=== PATIENT | female | born 1960 | race Caucasian/White ===

== ENCOUNTER 2016-04-07 16:06 | Emergency (ER) | payer BC, OTHER ==
[~2016-04-07] VITALS: Ht 160 cm; Wt 86.7 kg
[~2016-04-07 16:06] MED LIST: RANI300T2 PO
[2016-04-07 16:12] VITALS: BP 125/73; PULSE 89; TEMP 36.7; O2SAT 97; Ht 160 cm; Wt 86.7 kg
[2016-04-07] MEDS ORDERED: OMEP40CA41 PO (16:42)
--- NOTE | 2016-04-07 17:15 | DIAGNOSTIC IMAGING REPORT ---
LEFT KNEE 3 VIEWS CLINICAL HISTORY: Left knee injury. FINDINGS: AP, crosstable lateral, and sunrise views of the left knee are obtained. No prior studies are available for comparison at the time of dictation. The skeletal structures are well mineralized. There is a questionable vertical lucency seen within the lateral aspect of the proximal tibia. Fractures considered unlikely but not excluded. No additional findings are concerning for fracture. Mild tricompartmental degenerative joint space narrowing is noted. There is no joint effusion. Mild soft tissue swelling is present around the knee. IMPRESSION: 1. Mild soft tissue swelling with no definite fracture identified. 2. A vertical lucency in the lateral aspect of the proximal tibia is indeterminant and likely represents normal trabeculation. This is only seen on the frontal view and is considered low suspicion for acute fracture. If there is point tenderness at this site or strong clinical concern for acute fracture consider oblique views. Electronically signed by: Corby Scott M.D. 04/07/2016 5:13 PM Dictated Date/Time: 04/07/2016 5:10 PM
--- NOTE | 2016-04-07 17:37 | EMERGENCY ROOM VISIT NOTE ---
ED Visit Note First contact with patient: 16:21 CHIEF COMPLAINT: knee pain HISTORY OF PRESENT ILLNESS: This 55-year-old female patient presents to the emergency department ambulatory after sustaining an injury to the left knee last night. The patient states that she tripped and fell, twisting her left knee. She states that she heard a pop in the knee when it occurred. The patient denies any other injuries besides their knee. The patient denies swelling. She states there is some bruising to the inside of the knee. There is pain with any movement or walking. They rate the pain as sharp and 10/10. The patient states they are able to walk on it. No numbness or tingling. No previous injuries to this knee. No ankle, foot or hip pain. REVIEW OF SYSTEMS: A 6 system review of systems was completed with positives and pertinent negatives listed in the HPI. ALLERGIES: No known drug allergies MEDICATIONS: Prilosec PMH: Asthma SOCIAL HISTORY: The patient lives locally with family. Nonsmoker, denies alcohol use. PHYSICAL EXAM: Vital Signs: Reviewed Nurse's notes, vital signs stable. GENERAL : This is a 55-year-old female, no acute distress, but appears in pain, well- developed, well-nourished. MENTAL STATUS: Alert, oriented to person place and time, and cooperative. MUSCULOSKELETAL: The left knee is not swollen. There is minimal ecchymosis along the medial aspect of the joint. There is no joint effusion present. The patient is tender along the medial aspect of the proximal tibia. The patella does not subluxate. Range of motion is full. Strength of the quads and hamstrings is 5/5. Ligamentous stability is difficult to examine secondary to patient discomfort. The foot and toes are warm and well-perfused. Dorsalis pedis pulse 2+. Sensation to pain and light touch is intact. Capillary refill less than 2 seconds. RADIOGRAPHIC FINDINGS: LEFT KNEE 3 VIEWS CLINICAL HISTORY: Left knee injury. FINDINGS: AP, crosstable lateral, and sunrise views of the left knee are obtained. No prior studies are available for comparison at the time of dictation. The skeletal structures are well mineralized. There is a questionable vertical lucency seen within the lateral aspect of the proximal tibia. Fractures considered unlikely but not excluded. No additional findings are concerning for fracture. Mild tricompartmental degenerative joint space narrowing is noted. There is no joint effusion. Mild soft tissue swelling is present around the knee. IMPRESSION: 1. Mild soft tissue swelling with no definite fracture identified. 2. A vertical lucency in the lateral aspect of the proximal tibia is indeterminant and likely represents normal trabeculation. This is only seen on the frontal view and is considered low suspicion for acute fracture. If there is point tenderness at this site or strong clinical concern for acute fracture consider oblique views. EMERGENCY DEPARTMENT COURSE: I examined the patient. X-rays of the left knee were reviewed by myself and read by radiology and reveal a questionable finding at the lateral aspect of the proximal tibia. This does not correlate with the patient's pain and I do not feel that it represents a fracture. Her pain is likely secondary to ligamentous or meniscal injury. The patient was placed in a knee immobilizer under my direction and the position was satisfactory. The patient was instructed on the use of crutches. She was given information for orthopedic follow-up. Conservative measures were discussed. The patient was discharged home in good condition. DIAGNOSIS: Left knee injury Current/Historical Medications Scheduled Omeprazole (Prilosec), 40 MG PO DAILY Allergies Coded Allergies: No Known Allergies (Verified , 01/17/11) Vital Signs Date Time Temp Pulse Resp B/P Pulse Ox O2 Delivery O2 Flow Rate FiO2 04/07/16 16:12 36.7 89 18 125/73 97 Room Air Departure Information Impression Primary Impression: Left knee injury Dispostion Home / Self-Care Condition GOOD Referrals No Doctor, Assigned (PCP) Clifton Galloway M.D. Patient Instructions [facility] Additional Instructions You have been treated in the Emergency Department for Knee Pain. For pain control, you can use the following pery-kib-lsfrqul medicines (if >12 yo): - Regular strength (325mg/tab) Tylenol (acetaminophen) 2 tabs every 4-6 hours as needed. Do not exceed 12 tablets in a 24 hour period. Avoid taking more than 4 grams (4000 mg) of Tylenol per day. This includes any other sources of acetaminophen you may take on a regular basis. - Regular strength (200 mg/tab) Advil (ibuprofen) 1-2 tabs every 4-6 hours as needed. Do not exceed a dose of 3200 mg per day. If this is a recent injury (<24 hrs), ice can be applied to the area of pain for the first 3 days to help decrease pain and inflammation. Ice massages can be performed by freezing water in a paper cup, peeling back the cup to expose the ice and then massaging over the affected area. You have been provided the number for an Orthopaedic Surgeon. You should call this number as soon as possible to establish a follow-up visit from today's Emergency Department visit. Keep the knee brace in place until cleared by Orthopedics. Use the crutches you have been provided to keep ALL weight off of the knee until weight bearing is tolerable. Return to the Emergency Department if your current symptoms worsen despite treatment course outlined above. Problem Qualifiers Primary Impression: Left knee injury Encounter type: initial encounter Qualified Codes: S89.92XA - Unspecified injury of left lower leg, initial encounter
== END 2016-04-07 17:55 | disposition home or self-care (01) ==
LOC: C.EDB 16:07 → C.EDD 17:55
DX: S89.92XA Unspecified injury of left lower leg, initial encounter (principal); W01.0XXA Fall on same level from slipping, tripping and stumbling without subsequent striking against object, initial encounter

== ENCOUNTER 2020-11-20 17:30 | Inpatient (IN) ==
[2020-11-20] MEDS ORDERED: KETOROLAC TROMETHAMINE 15 MG/ML VIAL IV STA (19:05)
[2020-11-20 19:10] LABS: Hematocrit (blood only) 39.5 % (37-47); Hemoglobin 13.8 g/dL (12.0-16.0); Mean Corpuscular Hemoglobin 31.2 pg (25-34); Mean Corpuscular Hgb Conc 34.9 g/dL (32-36); Mean Corpuscular Volume 89.2 fL (80-100); Mean Platelet Volume 10.7 fL (7.4-10.4); Platelet Count 324 K/uL (130-400); RDW Coefficient of Variation 12.7 % (11.5-14.5); RDW Standard Deviation 41.4 fL (36.4-46.3); Red Blood Count 4.43 M/uL (4.2-5.4); White Blood Count 29.09 K/uL (4.8-10.8)
[2020-11-20 19:19] LABS: BUN Creatinine Ratio 7.1 (10-20); Calcium 9.4 mg/dl (8.5-10.1); Creatinine Clr Calc Pharmacy 67.2 ml/min; Est GFR (African American) 79.6 ml/min; Est GFR (Non-African American) 68.6 ml/min; Potassium 3.6 mmol/L (3.5-5.1)
[2020-11-20 19:26] LABS: Basophils # (auto) 0.02 K/uL (0-0.2); Basophils % (auto) 0.1 %; Immature Granulocytes # (auto) 0.13 K/uL (0.00-0.02); Immature Granulocytes % (auto) 0.4 %; Lymphocytes # (auto) 2.01 K/uL (1.2-3.4); Lymphocytes % (auto) 6.9 %; Monocytes # (auto) 2.18 K/uL (0.11-0.59); Monocytes % (auto) 7.5 %; Neutrophils # (auto) 24.75 K/uL (1.4-6.5); Neutrophils % (auto) 85.1 %
[2020-11-20] MEDS ORDERED: OPTIRAY 320 100ml IV ONE (19:34)
--- NOTE | 2020-11-20 20:14 | CT Scan Report ---
CT SCAN OF THE NECK WITH IV CONTRAST CLINICAL HISTORY: Right-sided neck pain. Sore throat. COMPARISON STUDY: Thyroid ultrasound dated 04/26/2011. TECHNIQUE: Following the IV administration of 94 cc of Optiray 320, CT scan of the soft tissues of th e neck was performed from the skull base to the upper chest. Images are reviewed in the axial, sagitt al, and coronal planes. IV contrast was administered without complication. A dose lowering techniqu e was utilized adhering to the principles of ALARA. CT DOSE: 549.63 mGy.cm FINDINGS: Pharynx: There is significant edema and mucosal hyperemia involving the tonsils, right greater than l eft. A large multiloculated right peritonsillar abscess is best seen on axial image #144. This measur es 2.2 x 2.6 x 1.1 cm, and inflammation significantly air narrows the adjacent airway. There is signi ficant infiltration throughout the right parapharyngeal fat, as well as infiltration/edema of the pre vertebral/retropharyngeal soft tissues with no organized retropharyngeal fluid collection. Infiltrati on and edema effaces the right vallecula comment also extends inferiorly facing the right piriformis sinus with associated phlegmonous change. There is also phlegmonous change within the right piriformi s musculature. There is no evidence of mass lesion. The vocal cords are symmetric. The epiglottis is normal. Lymphadenopathy: There are numerous mildly enlarged and hyperemic right cervical chain lymph nodes wh ich are likely reactive Thyroid: Normal in size and attenuation. Salivary glands: The parotid and submandibular glands are within normal limits. Brain parenchyma: The visualized brain parenchyma at the skull base is normal in appearance. Vascular structures: The carotid arteries and jugular veins are widely patent bilaterally. Skeletal structures: Imaged portions of the calvarium at the skull base are within normal limits. The cervical spine appears intact noting mild multilevel spondylosis. No lytic or blastic lesion is iden tified. Orbits: The bony orbits appear intact. Orbital contents are normal as visualized. Sinuses and mastoids: There is trace mucosal thickening within the ethmoid sinuses and the right maxi llary antrum. The remaining paranasal sinuses are clear. The mastoid air cells are well pneumatized. Lung apices: Visualized apical lung parenchyma is clear. IMPRESSION: 1. Findings consistent with a severe pharyngitis/tonsillitis with a large right peritonsillar abscess as detailed above. This significantly narrows the adjacent airway. 2. Inflammation and phlegmonous change extends inferiorly on the right effacing the right vallecula i n the right piriformis sinus. 3. There is diffuse infiltration of the right parapharyngeal fat as well as edema/infiltration of the retropharyngeal soft tissues. No retropharyngeal fluid collection is identified at this time. 4. Infiltration/phlegmonous change is also seen within the right piriformis musculature. 5. Right cervical lymphadenopathy is likely reactive. 6. Additional findings as above. ACT 112: Negative or not required by law. Electronically signed by: Corby Scott M.D. 11/20/2020 8:13 PM
[2020-11-20] MEDS ORDERED: AMPICILLIN/SULBACTAM SOD 3,000 MG in 0.9 % SODIUM CHLORIDE 100 ML IV STA (20:22)
[2020-11-20] MEDS ORDERED: DEXAMETHASONE SOD INJ 4 MG/ML VIAL IV STA (20:22)
[2020-11-20] MEDS ORDERED: LIDO/EPINEPHRINE/SOD BICARB 20 ML VIAL ONE (20:47)
--- NOTE | 2020-11-20 20:54 | History & Physical Report ---
Date of Service November 20, 2020 Assessment & Plan (1) Peritonsillar abscess: Plan: Admit to medical telemetry Given dexamethasone 10 mg IV and Unasyn 3 g IV from the ED Continue dexamethasone 4 mg IV every 8 hours, and Unasyn 3 g IV every 6 hours Follow all cultures Patient did undergo drainage by ENT Dr. Sherwood while in the ED. Acetaminophen 1 g IV every 8 hours as needed mild pain or fever (2) Chronic reflux esophagitis: Plan: Hold omeprazole until able to take p.o. Famotidine 20 mg IV every 12 hours (3) Hypercholesterolemia: Plan: Hold the tube statin until taking p.o. (4) Asthma: Plan: DuoNebs every 2 hours as needed History of Present Illness Chief Complaint: The patient Zentz to the emergency department with worsening sore throat and difficulty swallowing, despite being placed on amoxicillin 3 days ago Primary Care Provider: [address], [place] The patient is a 59-year-old for male with past history including PND, hyperglycemia, positive PERRY vitamin D deficiency, hypercholesterolemia, asthma and chronic reflux esophagitis. She presents with symptoms as noted above. CT scan of soft tissue of neck: Severe pharyngitis/tonsillitis with a large right peritonsillar abscess that significantly narrows the adjacent airway. Inflammation and phlegmon is changes extending inferiorly on the right effacing the right vallecula and the right piriform sinus. There is diffuse infiltration of the right. Frequent parapharyngeal fat as well as the edema/infiltration of the retropharyngeal soft tissues. Infiltration/phlegmonous change is also seen within the right piriformis musculature. Patient was assessed by Dr. PIERRE Sherwood in the ED, with plans for drainage. The patient will then be admitted to the medical service Allergies Allergy/AdvReac Type Severity Reaction Status Date / Time No Known Allergies Allergy Unknown Verified 11/14/20 08:38 Home Medications Medication Instructions Recorded Confirmed Type aspirin 81 mg tablet,delayed 81 mg PO DAILY 01/21/19 11/20/20 History release gabapentin 100 mg capsule 100 mg PO DAILY #90 cap 08/11/19 11/20/20 Rx atorvastatin 20 mg tablet 20 mg PO DAILY #90 tab 02/08/20 11/20/20 Rx cholecalciferol (vitamin D3) 125 125 mcg PO DAILY #30 cap 02/08/20 11/20/20 Rx mcg (5,000 unit) capsule omeprazole 40 mg capsule,delayed 40 mg PO DAILY #30 cap 06/07/20 11/20/20 Rx release albuterol sulfate 90 mcg/actuation 1 - 2 puff INH Q4H PRN #8.5 gm 07/19/20 11/20/20 Rx aerosol inhaler amoxicillin 500 mg tablet 500 mg PO Q8H #21 tab 11/14/20 11/20/20 Rx vitamin B complex 1 tab PO DAILY 11/20/20 11/20/20 History Past Med/Surg History Medical History (Updated 11/20/20 @ 21:38 by Azul Eli) Left knee injury Murmur Positive PERRY (antinuclear antibody) Surgical History S/P appendectomy S/P dilatation and curettage S/P tubal ligation Family History Father Myocardial infarction Hypertension Mother Diabetes Thyroid cancer Denies family history of Ovarian cancer Prostate cancer Breast cancer Colorectal cancer Social History Smoking Status: Current every day smoker Age Started Using Tobacco: 16; Second Hand Exposure: Yes; Hx Alcohol Use: Yes Alcohol type: wine Hx Substance Use: No Preferred Language: [place] Communication Ability: Effective Visual Impairment: No Limitations Hearing Ability: Normal Rib Matcher And Fitter Required: No Beliefs That Will Affect Care: None marital status: Current Living Situation: Spouse Current Living Situation Comment: lives with , pets and a child at home, grown adult child of pt. current occupational status: employed current occupation: Housekeeping Feels Safe at Home: Yes Childhood Exposure to Second-Hand Smoke: Yes Dental Care, Regularly: No Physical Activity Frequency: Does not Exercise Seatbelt Use: always Sunscreen Use: No Assistive Devices: Glasses Review of Systems Review of Systems: The patient denies chest pain, palpitations, cough, lower extremity swelling, chills, sweats, nausea, vomiting, diarrhea , constipation, abdominal pain, pelvic pain, blood in urine or stool, dysuria, urinary frequency or urgency, lightheadedness, dizziness, headache, memory loss, loss of consciousness, rash, abnormal bruising or bleeding, imbalance, focal weakness, numbness or tingling in arms or legs, back or neck pain, or night sweats. The review of systems is otherwise negative other than for that already noted above, and at least 10 systems have been reviewed. Physical Exam Physical Exam: The patient is awake, alert and oriented 3, well developed and well nourished, normocephalic and atraumatic, lying in bed and in no acute dist ress. HEENT--PERRL, EOMI, diffuse erythema and edema right greater than left oropharynx Neck--No JVD. No bruits. Right cervical lymphadenopathy. Heart--normal S1 and S2. No murmurs, rubs or gallops. Lungs--clear bilaterally, no respiratory distress, no accessory muscle use. Abdomen--normal bowel sounds and soft. Nontender. Nondistended. Extremities--no cyanosis or clubbing. No edema. Dermatologic--normal skin turgor, normal color, no abnormal lymph nodes, no rash. Neurologic--cranial nerves II through XII grossly intact. Rheumatologic--normal range of motion. Psychiatric--normal affect. Results & Data Results & Data ([facility]) Vital Signs (Past 12 Hours) Vital Signs Temp Pulse Pulse Resp BP BP Pulse Ox 11/20/20 20:40 70 18 126/70 98 11/20/20 19:10 78 20 131/69 97 11/20/20 18:19 18 11/20/20 18:01 97.9 F 73 20 136/80 98 Laboratory Results Laboratory Results WBC 29.09 K/uL (4.8-10.8) H 11/20/20 18:18 RBC 4.43 M/uL (4.2-5.4) 11/20/20 18:18 Hgb 13.8 g/dL (12.0-16.0) 11/20/20 18:18 Hct 39.5 % (37-47) 11/20/20 18:18 MCV 89.2 fL (80-100) 11/20/20 18:18 MCH 31.2 pg (25-34) 11/20/20 18:18 MCHC 34.9 g/dL (32-36) 11/20/20 18:18 RDW Std Deviation 41.4 fL (36.4-46.3) 11/20/20 18:18 RDW Coeff of Tana 12.7 % (11.5-14.5) 11/20/20 18:18 Plt Count 324 K/uL (130-400) 11/20/20 18:18 MPV 10.7 fL (7.4-10.4) H 11/20/20 18:18 Immature Gran % (Auto) 0.4 % 11/20/20 18:18 Neut % (Auto) 85.1 % 11/20/20 18:18 Lymph % (Auto) 6.9 % 11/20/20 18:18 Ashley % (Auto) 7.5 % 11/20/20 18:18 Eos % (Auto) 0.0 % 11/20/20 18:18 Baso % (Auto) 0.1 % 11/20/20 18:18 Neut # (Auto) 24.75 K/uL (1.4-6.5) H 11/20/20 18:18 Lymph # (Auto) 2.01 K/uL (1.2-3.4) 11/20/20 18:18 Ashley # (Auto) 2.18 K/uL (0.11-0.59) H 11/20/20 18:18 Eos # (Auto) 0.00 K/uL (0-0.5) 11/20/20 18:18 Baso # (Auto) 0.02 K/uL (0-0.2) 11/20/20 18:18 Immature Gran # (Auto) 0.13 K/uL (0.00-0.02) H 11/20/20 18:18 Sodium 132 mmol/L (136-145) L 11/20/20 18:18 Potassium 3.6 mmol/L (3.5-5.1) 11/20/20 18:18 Chloride 99 mmol/L (98-107) 11/20/20 18:18 Carbon Dioxide 25 mmol/L (21-32) 11/20/20 18:18 Anion Gap 8.0 (3-11) 11/20/20 18:18 BUN 7 mg/dl (7-18) 11/20/20 18:18 Creatinine 0.92 mg/dl (0.6-1.2) 11/20/20 18:18 Est Cr Clr Drug Dosing 67.2 ml/min 11/20/20 18:18 Est GFR ( Amer) 79.6 ml/min 11/20/20 18:18 Est GFR (Non-Af Amer) 68.6 ml/min 11/20/20 18:18 BUN/Creatinine Ratio 7.1 (10-20) L 11/20/20 18:18 Glucose 123 mg/dl (70-99) H 11/20/20 18:18 Calcium 9.4 mg/dl (8.5-10.1) 11/20/20 18:18 COVID-19 Eval Order Covid19 at [facility] 11/20/20 18:51 SARS-CoV-2 (PCR) NEGATIVE (Negative) 11/20/20 18:51 Group A Strep (PCR) NOT DETECTED (NotDetected) 11/20/20 18:48 Impressions Soft Tissue Neck CT 11/20/20 18:48 CT SCAN OF THE NECK WITH IV CONTRAST CLINICAL HISTORY: Right-sided neck pain. Sore throat. COMPARISON STUDY: Thyroid ultrasound dated 04/26/2011. TECHNIQUE: Following the IV administration of 94 cc of Optiray 320, CT scan of the soft tissues of the neck was performed from the skull base to the upper chest. Images are reviewed in the axial, sagittal, and coronal planes. IV contrast was administered without complication. A dose lowering technique was utilized adhering to the principles of ALARA. CT DOSE: 549.63 mGy.cm FINDINGS: Pharynx: There is significant edema and mucosal hyperemia involving the tonsils, right greater than left. A large multiloculated right peritonsillar abscess is best seen on axial image #144. This measures 2.2 x 2.6 x 1.1 cm, and inflammation significantly air narrows the adjacent airway. There is significant infiltration throughout the right parapharyngeal fat, as well as inf iltration/edema of the prevertebral/retropharyngeal soft tissues with no organized retropharyngeal fluid collection. Infiltration and edema effaces the right vallecula comment also extends inferiorly facing the right piriformis sinus with associated phlegmonous change. There is also phlegmonous change within the right piriformis musculature. There is no evidence of mass lesion. The vocal cords are symmetric. The epiglottis is normal. Lymphadenopathy: There are numerous mildly enlarged and hyperemic right cervical chain lymph nodes which are likely reactive Thyroid: Normal in size and attenuation. Salivary glands: The parotid and submandibular glands are within normal limits. Brain parenchyma: The visualized brain parenchyma at the skull base is normal in appearance. Vascular structures: The carotid arteries and jugular veins are widely patent bilaterally. Skeletal structures: Imaged portions of the calvarium at the skull base are within normal limits. The cervical spine appears intact noting mild multilevel spondylosis. No lytic or blastic lesion is identified. Orbits: The bony orbits appear intact. Orbital contents are normal as visualized. Sinuses and mastoids: There is trace mucosal thickening within the ethmoid sinuses and the right maxillary antrum. The remaining paranasal sinuses are clear. The mastoid air cells are well pneumatized. Lung apices: Visualized apical lung parenchyma is clear. IMPRESSION: 1. Findings consistent with a severe pharyngitis/tonsillitis with a large right peritonsillar abscess as detailed above. This significantly narrows the adjacent airway. 2. Inflammation and phlegmonous change extends inferiorly on the right effacing the right vallecula in the right piriformis sinus. 3. There is diffuse infiltration of the right parapharyngeal fat as well as edema/infiltration of the retropharyngeal soft tissues. No retropharyngeal fluid collection is identified at this time. 4. Infiltration/phlegmonous change is also seen within the right piriformis musculature. 5. Right cervical lymphadenopathy is likely reactive. 6. Additional findings as above. ACT 112: Negative or not required by law. Electronically signed by: Corby Scott M.D. 11/20/2020 8:13 PM Code Status & VTE Plan Code Status Full code VTE Prophylaxis Plan VTE Prophylaxis will be ordered: Yes PG Care Time/CCT Total # of Minutes Spent Total Time Spent with Patient: Total time spent is greater than 50% in coordination of care (as documented) at patient's floor/unit and/or counseling patient: Coding Level of Care Code 02663 Initial Inpt Care Lvl 3 Diagnoses Peritonsillar abscess J36 Chronic reflux esophagitis K21.0 Hypercholesterolemia E78.00 Asthma J45.909
--- NOTE | 2020-11-20 21:22 | ENT Consultation ---
Date of Consultation November 20, 2020 Assessment & Plan (1) Peritonsillar abscess: Evidence of peritonsillar abscess, right, on CT and on exam. For incision and drainage. History of Present Illness Reason for Consultation: Right peritonsillar abscess History of Present Illness This 59-year-old lady had acute onset sore throat 3 days ago became progressively worse, developed dysphagia, presented with trismus, CT scan documented 2 cm phlegmon right peritonsillar area. Allergies Allergy/AdvReac Type Severity Reaction Status Date / Time No Known Allergies Allergy Unknown Verified 11/14/20 08:38 Home Medications Medication Instructions Recorded Confirmed Type aspirin 81 mg tablet,delayed 81 mg PO DAILY 01/21/19 11/20/20 History release gabapentin 100 mg capsule 100 mg PO DAILY #90 cap 08/11/19 11/20/20 Rx atorvastatin 20 mg tablet 20 mg PO DAILY #90 tab 02/08/20 11/20/20 Rx cholecalciferol (vitamin D3) 125 125 mcg PO DAILY #30 cap 02/08/20 11/20/20 Rx mcg (5,000 unit) capsule omeprazole 40 mg capsule,delayed 40 mg PO DAILY #30 cap 06/07/20 11/20/20 Rx release albuterol sulfate 90 mcg/actuation 1 - 2 puff INH Q4H PRN #8.5 gm 07/19/20 11/20/20 Rx aerosol inhaler amoxicillin 500 mg tablet 500 mg PO Q8H #21 tab 11/14/20 11/20/20 Rx vitamin B complex 1 tab PO DAILY 11/20/20 11/20/20 History Patient History Medical History (Updated 11/20/20 @ 21:22 by Callie Sherwood MD) Left knee injury Murmur Positive PERRY (antinuclear antibody) Surgical History S/P appendectomy S/P dilatation and curettage S/P tubal ligation Family History Father Myocardial infarction Hypertension Mother Diabetes Thyroid cancer Denies family history of Ovarian cancer Prostate cancer Breast cancer Colorectal cancer Social History Smoking Status: Never smoker Age Started Using Tobacco: 16; Second Hand Exposure: Yes; Hx Alcohol Use: Yes Hx Substance Use: No Preferred Language: Upper Sorbian Communication Ability: Effective Visual Impairment: No Limitations Hearing Ability: Normal marital status: Current Living Situation: Spouse current occupational status: employed current occupation: Housekeeping Feels Safe at Home: Yes Childhood Exposure to Second-Hand Smoke: Yes Dental Care, Regularly: No Physical Activity Frequency: Does not Exercise Seatbelt Use: always Sunscreen Use: No Physical Exam Constitutional: WD/WN, vitals as above Eyes: PERRL, conjunctivae normal, anicteric sclerae ENMT: external ear and nose normal, oropharynx normal Mouth: + oropharynx abnormality (Right soft palate swelling with uvular edema and uvular shift to the left) and + muffled voice Throat: + tonsil abnormality (Right tonsil with purulence draining superior pole), + lateral displacement of uvula (Deviated left) and + uvular edema Neck: trachea midline, no thyromegaly Respiratory: normal respiratory effort, lungs clear to auscultation Results & Data ([facility]) Vital Signs (Past 12 Hours) Vital Signs Temp Pulse Pulse Resp BP BP Pulse Ox 11/20/20 20:40 70 18 126/70 98 11/20/20 19:10 78 20 131/69 97 11/20/20 18:19 18 11/20/20 18:01 36.6 C 73 20 136/[address] scan reviewed. 2 cm phlegmon right peritonsillar area
--- NOTE | 2020-11-20 21:24 | Operative Report ---
PG Post Operative Report Pre & Post Diagnosis Right peritonsillar abscess I identified the patient and participated in the time-out.: Yes Procedure Incision and drainage right peritonsillar abscess Surgeon Callie Sherwood MD Cable Splicer Assistant None Estimated Blood Loss 5 Findings Consistent with Post-Op Diagnosis Right UV letter swelling, shift left Specimens PATIENT ESCORT right. Tonsil abscess Anesthesia Type Local Complications None Description of Procedure She was in the emergency room, she was in the semisitting position. The throat was sprayed with Cetacaine. I then injected with 1% Xylocaine with 1-100,000 strength epinephrine in the right peritonsillar area. I aspirated with 18-gauge spinal needle, 1 cc pus obtained. I incised with #11 blade and spread open with tonsillar hemostat. I suctioned out the abscess cavity with the Yankauer suction. She tolerated the procedure well. I attest to the content of the Intraoperative Record and any orders documented therein. Any exceptions are noted below.
--- NOTE | 2020-11-20 21:32 | Emergency Department Note ---
History of Present Illness General Chief complaint: Throat Pain Stated complaint: SWOLLEN THROAT, SWOLLEN GLANDS Time Seen by Provider: 11/20/20 18:30 History of Present Illness Provider complaint: Throat and neck pain Onset (ago): day(s) 3 Location: mouth Radiation: non-radiation Pain Consistency: + constant Maximum Pain Intensity: 10 Current Pain Intensity: 10 Quality: + stabbing, + aching, + sharp and + dull Relieved By: + none Exacerbated By: + none Associated symptoms: no cough, no fever/chills, no headaches, no nausea/vomiting or no shortness of breath 59-year-old female presents emergency for right throat and neck pain. Patient reports her pain began 3 days ago. She reports no trauma. She reports no fevers. Patient is not vaccinated as COVID-19. She reports no nausea or vomiting. Home Medications Medication Instructions Recorded Confirmed Type aspirin 81 mg tablet,delayed 81 mg PO DAILY 01/21/19 11/20/20 History release gabapentin 100 mg capsule 100 mg PO DAILY #90 cap 08/11/19 11/20/20 Rx atorvastatin 20 mg tablet 20 mg PO DAILY #90 tab 02/08/20 11/20/20 Rx cholecalciferol (vitamin D3) 125 125 mcg PO DAILY #30 cap 02/08/20 11/20/20 Rx mcg (5,000 unit) capsule omeprazole 40 mg capsule,delayed 40 mg PO DAILY #30 cap 06/07/20 11/20/20 Rx release albuterol sulfate 90 mcg/actuation 1 - 2 puff INH Q4H PRN #8.5 gm 07/19/20 11/20/20 Rx aerosol inhaler amoxicillin 500 mg tablet 500 mg PO Q8H #21 tab 11/14/20 11/20/20 Rx vitamin B complex 1 tab PO DAILY 11/20/20 11/20/20 History Allergies Allergy/AdvReac Type Severity Reaction Status Date / Time No Known Allergies Allergy Unknown Verified 11/14/20 08:38 Past Med/Surg History Medical History Left knee injury Murmur Positive PERRY (antinuclear antibody) Surgical History S/P appendectomy S/P dilatation and curettage S/P tubal ligation Family History Father Myocardial infarction Hypertension Mother Diabetes Thyroid cancer Denies family history of Ovarian cancer Prostate cancer Breast cancer Colorectal cancer Social History Smoking Status: Never smoker Age Started Using Tobacco: 16; Second Hand Exposure: Yes; Hx Alcohol Use: Yes Hx Substance Use: No Preferred Language: Sami Communication Ability: Effective Visual Impairment: No Limitations Hearing Ability: Normal marital status: Current Living Situation: Spouse current occupational status: employed current occupation: Housekeeping Feels Safe at Home: Yes Childhood Exposure to Second-Hand Smoke: Yes Dental Care, Regularly: No Physical Activity Frequency: Does not Exercise Seatbelt Use: always Sunscreen Use: No Review of Systems A total of 10 systems reviewed and were otherwise negative Physical Exam Vital Signs Vital Signs - 24 hr 11/20/20 18:01 11/20/20 18:19 11/20/20 19:10 Temperature 36.6 C Temperature Source Oral Pulse Rate 73 Pulse Rate [Apical] 78 Respiratory Rate 20 18 20 Respiratory Effort / Characteristics Non-Labored Respiratory Depth Normal Normal Blood Pressure 136/80 Blood Pressure [Left Radial Artery] 131/69 Blood Pressure Mean 98 Blood Pressure Mean [Left Radial Artery] 89 Blood Pressure Position Sitting Pulse Oximetry 98 97 Oxygen Delivery Method Room Air Room Air Sepsis Recent Fever Within 48 Hours No Sepsis New/Unexplained Change in Mental Status N/A Sepsis Action Taken by Nursing No Action Required 11/20/20 20:40 Temperature Temperature Source Pulse Rate Pulse Rate [Apical] 70 Respiratory Rate 18 Respiratory Effort / Characteristics Respiratory Depth Blood Pressure Blood Pressure [Left Radial Artery] 126/70 Blood Pressure Mean Blood Pressure Mean [Left Radial Artery] 88 Blood Pressure Position Pulse Oximetry 98 Oxygen Delivery Method Sepsis Recent Fever Within 48 Hours Sepsis New/Unexplained Change in Mental Status Sepsis Action Taken by Nursing Physical Exam GENERAL: She is oriented to person, place, and time. She appears well-developed and well-nourished. She does not appear distressed. HENT: Exam performed. -Head: Normocephalic and atraumatic. -Right Ear: External ear normal. No mastoid tenderness. -Left Ear: External ear normal. No mastoid tenderness. -Mouth/Throat: Trismus. EYES: Conjunctivae and EOM are normal. Pupils are equal, round, and reactive to light. Right eye exhibits no discharge. Left eye exhibits no discharge. No scleral icterus. NECK: Normal range of motion. Neck supple. No JVD present. No spinous process tenderness present. No carotid bruit present. No rigidity. No tracheal deviation and normal range of motion present. No Brudzinski's sign and no Kernig's sign noted. Pain on palpation over the right anterior neck. CV: Normal rate, regular rhythm, normal heart sounds and intact distal pulses. There is no peripheral edema. Palpable radial pulses bue. PULM/CHEST: Effort normal and breath sounds normal. No respiratory distress. No stridor. She has no wheezes. She has no rales. -Chest Wall: She exhibits no tenderness. ABD: The abdomen is soft. Bowel sounds are normal. She has no distension. No mass is present. There is no tenderness. There is no rebound, no guarding, no Soria's sign and no tenderness at McBurney's point. Rovsig negative MUSC/SKEL: Normal range of motion. There is no peripheral edema, tenderness or deformity. LYMPH: Right-sided cervical adenopathy. NEURO: She is alert and oriented to person, place, and time. She has normal strength. No cranial nerve deficit or sensory deficit. Coordination and gait normal. GCS eye subscore is 4. GCS verbal subscore is 5. GCS motor subscore is 6. Cerebellar tests wnl. SKIN: Skin is warm and dry. She is not diaphoretic. PSYCH: She has a normal mood and affect. Behavior is normal. Judgment and thought content normal. Course Course 1829: The patient was evaluated in room C2. A complete history and physical exam was performed Cardiac monitoring: An order was placed for continuous cardiac monitoring. The monitor shows a rate of 80 with sinus rhythm 2020: Vital signs stable. Patient's oxygen saturation is stable. Labs show leukocytosis of 29. Imaging shows a large multiloculated right peritonsillar abscess measuring 2.2 x 2.6 x 1.1 cm that narrows the adjacent airway. Significant infiltration throughout the right pharyngeal fat as well as infiltration/edema of the prevertebral/retropharyngeal soft tissues but no organized retropharyngeal fluid collection. Infiltration edema effaces the righ t vallecula and extends inferiorly into the right piriform sinus. There is also phlegmonous change within the right piriformis musculature. Vocal cords are symmetric with epiglotis is normal. I did discuss these findings with ENT on- call Dr. Sherwood. He states he will be in to evaluate the patient. He recommends starting the patient on Unasyn as well as given the patient 10 mg of Decadron and admitted the patient to the medicine service. [facility] team will be notified. 2049: Dr. Sherwood at bedside Administered Medications Discontinued Medications Dexamethasone (Dexamethasone Sod Inj 4 Mg/Ml Vial) 10 mg IV NOW STA Stop: 11/20/20 20:23 Last Admin: 11/20/20 20:38 Dose: 10 mg Documented by: [id number] Ampicillin Sodium/Sulbactam Sodium 3,000 mg/ Sodium Chloride 108 mls @ 200 mls/hr IV NOW STA; Protocol Stop: 11/20/20 20:54 Last Admin: 11/20/20 20:49 Dose: 200 mls/hr Documented by: [id number] Ioversol (Optiray 320 100ml) 94 ml IV ONCE ONE Stop: 11/20/20 19:35 Last Admin: 11/20/20 19:34 Dose: 94 ml Documented by: [id number] Ketorolac Tromethamine (Ketorolac Tromethamine 15 Mg/Ml Vial) 15 mg IV NOW STA Stop: 11/20/20 19:06 Last Admin: 11/20/20 19:09 Dose: 15 mg Documented by: [id number] Medical Decision Making Laboratory Data Result diagrams: 11/20/20 18:18 11/20/20 18:18 Lab Results 11/20/20 11/20/20 11/20/20 Range/Units 18:18 18:18 18:48 WBC 29.09 H (4.8-10.8) K/uL RBC 4.43 (4.2-5.4) M/uL Hgb 13.8 (12.0-16.0) g/dL Hct 39.5 (37-47) % MCV 89.2 (80-100) fL MCH 31.2 (25-34) pg MCHC 34.9 (32-36) g/dL RDW Std Deviation 41.4 (36.4-46.3) fL RDW Coeff of Tana 12.7 (11.5-14.5) % Plt Count 324 (130-400) K/uL MPV 10.7 H (7.4-10.4) fL Immature Gran % (Auto) 0.4 % Neut % (Auto) 85.1 % Lymph % (Auto) 6.9 % [place] % (Auto) 7.5 % Eos % (Auto) 0.0 % Baso % (Auto) 0.1 % Neut # (Auto) 24.75 H (1.4-6.5) K/uL Lymph # (Auto) 2.01 (1.2-3.4) K/uL [place] # (Auto) 2.18 H (0.11-0.59) K/uL Eos # (Auto) 0.00 (0-0.5) K/uL Baso # (Auto) 0.02 (0-0.2) K/uL Immature Gran # (Auto) 0.13 H (0.00-0.02) K/uL Sodium 132 L (136-145) mmol/L Potassium 3.6 (3.5-5.1) mmol/L Chloride 99 (98-107) mmol/L Carbon Dioxide 25 (21-32) mmol/L Anion Gap 8.0 (3-11) BUN 7 (7-18) mg/dl Creatinine 0.92 (0.6-1.2) mg/dl Est Cr Clr Drug Dosing 67.2 ml/min Est GFR ( Amer) 79.6 ml/min Est GFR (Non-Af Amer) 68.6 ml/min BUN/Creatinine Ratio 7.1 L (10-20) Glucose 123 H (70-99) mg/dl Calcium 9.4 (8.5-10.1) mg/dl COVID-19 Eval Order SARS-CoV-2 (PCR) (Negative) Group A Strep (PCR) NOT DETECTED (NotDetected) 11/20/20 11/20/20 Range/Units 18:51 18:51 WBC (4.8-10.8) K/uL RBC (4.2-5.4) M/uL Hgb (12.0-16.0) g/dL Hct (37-47) % MCV (80-100) fL MCH (25-34) pg MCHC (32-36) g/dL RDW Std Deviation (36.4-46.3) fL RDW Coeff of Tana (11.5-14.5) % Plt Count (130-400) K/uL MPV (7.4-10.4) fL Immature Gran % (Auto) % Neut % (Auto) % Lymph % (Auto) % [place] % (Auto) % Eos % (Auto) % Baso % (Auto) % Neut # (Auto) (1.4-6.5) K/uL Lymph # (Auto) (1.2-3.4) K/uL [place] # (Auto) (0.11-0.59) K/uL Eos # (Auto) (0-0.5) K/uL Baso # (Auto) (0-0.2) K/uL Immature Gran # (Auto) (0.00-0.02) K/uL Sodium (136-145) mmol/L Potassium (3.5-5.1) mmol/L Chloride (98-107) mmol/L Carbon Dioxide (21-32) mmol/L Anion Gap (3-11) BUN (7-18) mg/dl Creatinine (0.6-1.2) mg/dl Est Cr Clr Drug Dosing ml/min Est GFR ( Amer) ml/min Est GFR (Non-Af Amer) ml/min BUN/Creatinine Ratio (10-20) Glucose (70-99) mg/dl Calcium (8.5-10.1) mg/dl COVID-19 Eval Order Covid19 at [facility] SARS-CoV-2 (PCR) NEGATIVE (Negative) Group A Strep (PCR) (NotDetected) Imaging Data Radiologist's Impression: Soft Tissue Neck CT 11/20/20 18:48 CT SCAN OF THE NECK WITH IV CONTRAST CLINICAL HISTORY: Right-sided neck pain. Sore throat. COMPARISON STUDY: Thyroid ultrasound dated 04/26/2011. TECHNIQUE: Following the IV administration of 94 cc of Optiray 320, CT scan of the soft tissues of the neck was performed from the skull base to the upper chest. Images are reviewed in the axial, sagittal, and coronal planes. IV contrast was administered without complication. A dose lowering technique was utilized adhering to the principles of ALARA. CT DOSE: 549.63 mGy.cm FINDINGS: Pharynx: There is significant edema and mucosal hyperemia involving the tonsils, right greater than left. A large multiloculated right peritonsillar abscess is best seen on axial image #144. This measures 2.2 x 2.6 x 1.1 cm, and inflammation significantly air narrows the adjacent airway. There is significant infiltration throughout the right parapharyngeal fat, as well as infiltration/edema of the prevertebral/retropharyngeal soft tissues with no organized retropharyngeal fluid collection. Infiltration and edema effaces the right vallecula comment also extends inferiorly facing the right piriformis sinus with associated phlegmonous change. There is also phlegmonous change within the right piriformis musculature. There is no evidence of mass lesion. The vocal cords are symmetric. The epiglottis is normal. Lymphadenopathy: There are numerous mildly enlarged and hyperemic right cervical chain lymph nodes which are likely reactive Thyroid: Normal in size and attenuation. Salivary glands: The parotid and submandibular glands are within normal limits. Brain parenchyma: The visualized brain parenchyma at the skull base is normal in appearance. Vascular structures: The carotid arteries and jugular veins are widely patent bilaterally. Skeletal structures: Imaged portions of the calvarium at the skull base are within normal limits. The cervical spine appears intact noting mild multilevel spondylosis. No lytic or blastic lesion is identified. Orbits: The bony orbits appear intact. Orbital contents are normal as visualized. Sinuses and mastoids: There is trace mucosal thickening within the ethmoid sinuses and the right maxillary antrum. The remaining paranasal sinuses are clear. The mastoid air cells are well pneumatized. Lung apices: Visualized apical lung parenchyma is clear. IMPRESSION: 1. Findings consistent with a severe pharyngitis/tonsillitis with a large right peritonsillar abscess as detailed above. This significantly narrows the adjacent airway. 2. Inflammation and phlegmonous change extends inferiorly on the right effacing the right vallecula in the right piriformis sinus. 3. There is diffuse infiltration of the right parapharyngeal fat as well as edema/infiltration of the retropharyngeal soft tissues. No retropharyngeal fluid collection is identified at this time. 4. Infiltration/phlegmonous change is also seen within the right piriformis musculature. 5. Right cervical lymphadenopathy is likely reactive. 6. Additional findings as above. ACT 112: Negative or not required by law. Electronically signed by: Corby Scott M.D. 11/20/2020 8:13 PM [facility] Narrative 183: The patient was evaluated in room C2. A complete history and physical exam was performed Cardiac monitoring: An order was placed for continuous cardiac monitoring. The monitor shows a rate of 80 with sinus rhythm 2020: Vital signs stable. Patient's oxygen saturation is stable. Labs show leukocytosis of 29. Imaging shows a large multiloculated right peritonsillar abscess measuring 2.2 x 2.6 x 1.1 cm that narrows the adjacent airway. Significant infiltration throughout the right pharyngeal fat as well as infiltration/edema of the prevertebral/retropharyngeal soft tissues but no organized retropharyngeal fluid collection. Infiltration edema effaces the right vallecula and extends inferiorly into the right piriform sinus. There is also phlegmonous change within the right piriformis musculature. Vocal cords are symmetric with epiglotis is normal. I did discuss these findings with ENT on-call Dr. Sherwood. He states he will be in to evaluate the patient. He recommends starting the patient on Unasyn as well as given the patient 10 mg of Decadron and admitted the patient to the medicine service. [facility] hospitalist team will be notified. 2049: Dr. Sherwood at bedside Impression & Plan Abscess, peritonsillar Discharge Plan Visit Data Chief Complaint: Throat Pain Stated Complaint: SWOLLEN THROAT, SWOLLEN GLANDS ED Provider: Matt Goodwin Prescriptions Prescriptions: No Action atorvastatin 20 mg tablet 20 mg PO DAILY Qty: 90 RF: 1 cholecalciferol (vitamin D3) 125 mcg (5,000 unit) capsule 125 mcg PO DAILY Qty: 30 RF: 11 omeprazole 40 mg capsule,delayed release(DR/EC) 40 mg PO DAILY Qty: 30 RF: 5 albuterol sulfate 90 mcg/actuation HFA aerosol inhaler 1 - 2 puff INH Q4H PRN (Reason: shortness of breath or wheezing) Qty: 8.5 RF: 0 gabapentin 100 mg capsule 100 mg PO DAILY Qty: 90 RF: 2 amoxicillin 500 mg tablet 500 mg PO Q8H Qty: 21 RF: 0 aspirin 81 mg tablet,delayed release (DR/EC) 81 mg PO DAILY RF: 0 vitamin B complex Tablet 1 tab PO DAILY RF: 0
[2020-11-20] MEDS ORDERED: ONDANSETRON INJ 2 MG/ML 2 ML VIAL IV PRN (22:56)
[2020-11-20] MEDS ORDERED: ACETAMINOPHEN 1,000 MG/100 ML VIAL IV PRN (22:56)
[2020-11-20] MEDS ORDERED: NSS + 20MEQ KCL 20 MEQ/1,000 ML BAG IV SCH (23:15)
[2020-11-20] MEDS ORDERED: ALBUT/IPRATROP 3MG/0.5MG NEB 3 ML VIAL NEB PRN (23:55)
[2020-11-21] MEDS: AMPICILLIN/SULBACTAM SOD 3,000 MG in 0.9 % SODIUM CHLORIDE 100 ML IV SCH ×2 (03:38→10:09)
[2020-11-21] MEDS ORDERED: dexAMETHasone 4 MG in SYRINGE 0 ML IV SCH (04:00)
[2020-11-21 06:22] LABS: Hematocrit (blood only) 39.4 % (37-47); Hemoglobin 13.1 g/dL (12.0-16.0); Mean Corpuscular Hemoglobin 30.6 pg (25-34); Mean Corpuscular Hgb Conc 33.2 g/dL (32-36); Mean Corpuscular Volume 92.1 fL (80-100); Mean Platelet Volume 10.3 fL (7.4-10.4); Platelet Count 305 K/uL (130-400); RDW Coefficient of Variation 12.9 % (11.5-14.5); RDW Standard Deviation 43.4 fL (36.4-46.3); Red Blood Count 4.28 M/uL (4.2-5.4); White Blood Count 26.69 K/uL (4.8-10.8)
[2020-11-21 06:48] LABS: Basophils # (auto) 0.01 K/uL (0-0.2); Immature Granulocytes # (auto) 0.08 K/uL (0.00-0.02); Immature Granulocytes % (auto) 0.3 %; Lymphocytes % (auto) 3.4 %; Monocytes # (auto) 0.55 K/uL (0.11-0.59); Monocytes % (auto) 2.1 %; Neutrophils # (auto) 25.15 K/uL (1.4-6.5); Neutrophils % (auto) 94.2 %
[2020-11-21 06:55] LABS: Albumin Level 2.9 gm/dl (3.4-5.0); BUN Creatinine Ratio 9.2 (10-20); Calcium 9.3 mg/dl (8.5-10.1); Creatinine Clr Calc Pharmacy 76.6 ml/min; Est GFR (African American) 94.2 ml/min; Est GFR (Non-African American) 81.3 ml/min
[2020-11-21 06:58] LABS: Albumin Globulin Ratio 0.6 (0.9-2); Bilirubin,Total 0.4 mg/dl (0.2-1); Globulin 4.5 gm/dl (2.5-4.0); Total Protein 7.4 gm/dl (6.4-8.2)
--- NOTE | 2020-11-21 07:28 | Ears,Nose,Throat Progress Note ---
Date of Service November 21, 2020 Assessment & Plan (1) Abscess, peritonsillar: Plan: Much improved today after I&D last evening. White count still elevated at 26,000. Afebrile. Increase diet. Can discharge in the afternoon if able to tolerate diet. Follow-up in my office in 2 weeks. Will need p.o. Augmentin for 10 days. Admission and Anticipated Discharge Date Admission Date: November 20, 2020 Subjective Feels much better. Wants to eat. Physical Exam Constitutional: WD/WN, vitals as above Eyes: PERRL, conjunctivae normal, anicteric sclerae ENMT: external ear and nose normal, oropharynx normal Throat: uvula midline (Uvula now midline, soft palate swelling diminished), + posterior oropharynx abnormality (I&D site right, healing well) and + tonsil abnormality (Right tonsil diminished in size) Neck: trachea midline, no thyromegaly Results & Data ([facility]) Vital Signs (Past 12 Hours) Vital Signs Temp Pulse Pulse Pulse Resp BP BP 11/21/20 03:15 36.8 C 80 14 114/69 11/20/20 22:56 37.1 C 87 16 132/83 11/20/20 22:44 83 11/20/20 22:40 37.1 C 87 16 132/83 11/20/20 21:51 81 18 147/83 H 11/20/20 20:40 70 18 126/70 Pulse Ox Pulse Ox 11/21/20 03:15 97 11/20/20 22:56 97 97 11/20/20 22:44 11/20/20 22:40 97 11/20/20 21:51 97 11/20/20 20:40 98
[2020-11-21] MEDS ORDERED: FAMOTIDINE 20 MG in SYRINGE 3 ML IV SCH (09:00)
[2020-11-21] MEDS ORDERED: ACETAMINOPHEN 500 MG TAB PO STA (11:31)
--- NOTE | 2020-11-21 14:45 | Discharge Summary ---
Date of Service November 21, 2020 Admission HPI Per Admitting Provider The patient is a 59-year-old for male with past history including PND, hyperglycemia, positive PERRY vitamin D deficiency, hypercholesterolemia, asthma and chronic reflux esophagitis. She presents with symptoms as noted above. CT scan of soft tissue of neck: Severe pharyngitis/tonsillitis with a large right peritonsillar abscess that significantly narrows the adjacent airway. Inflammation and phlegmon is changes extending inferiorly on the right effacing the right vallecula and the right piriform sinus. There is diffuse infiltration of the right. Frequent parapharyngeal fat as well as the edema/infiltration of the retropharyngeal soft tissues. Infiltration/phlegmonous change is also seen within the right piriformis musculature. Patient was assessed by ENT Dr. Sherwood in the ED, with plans for drainage. The patient will then be admitted to the medical service Principal Diagnosis Right peritonsillar abscess Discharge Exam Constitutional WD/WN, vitals as above Eyes EOM intact bilaterally; no conjunctival abnormality ENMT Mouth / Teeth: 1. Swelling Neck normal visual inspection (Slight swelling on the right side) Respiratory normal respiratory effort, lungs clear to auscultation no respiratory distress Cardiovascular RRR, no murmur, no edema Gastrointestinal (Abdomen) Inspection/Auscultation: abdomen normal to inspection; abdomen not distended Musculoskeletal no cyanosis or clubbing, extremities motor strength 5/5 Skin no rashes, warm and dry Neurologic moves all extremities and awake Psychiatric Orientation: alert, oriented to person and cooperative Discharge Data Allergies Allergy/AdvReac Type Severity Reaction Status Date / Time No Known Allergies Allergy Unknown Verified 11/14/20 08:38 Consultations 11/20/20 20:22 Consult Otolaryngology (Head and Neck) Stat 11/20/20 20:23 ED Decision to Admit Stat Ordered Studies 11/20/20 18:48 CT soft tissue neck w con Stat Hospital Course (1) Peritonsillar abscess: Given dexamethasone 10 mg IV and Unasyn 3 g IV from the ED. - S/p right I&D with Dr. Sherwood on 11/20. - Improving. Discharged on Augmentin x 10 days with follow up with Dr. Sherwood. Improving. Tolerated diet without issue. (2) Chronic reflux esophagitis: Hold omeprazole until able to take p.o. Famotidine 20 mg IV every 12 hours (3) Hypercholesterolemia: Held atorvastatin until taking p.o. - Resume (4) Asthma: DuoNebs every 2 hours as needed Total Time Total Time Spent Total Time Spent (In Minutes): 35 Discharge Plan Discharge Items Patient Disposition: Home - Self-Care Reason For Visit: PERITONSILLAR ABSCESS, PHLEGMON Discharge Diagnosis: Peritonsillar abscess Activity: Resume your previous activity Non-emergency contact: Primary Care Provider and Surgeon Call non-emergency contact if: your symptoms worsen, your pain is not controlled, your pain is worsening and your rectal temperature is above 100.4 Follow-up/Referrals: Ru[address] III, CRNP [Primary Care Provider] - Callie Sherwood MD [Physician] - 11/28/20 1:45 pm (Please see Dr. Sherwood in 1-2 weeks for follow up of your peritonsillar abscess.) Diet: Regular Diet Texture: Mechanical soft (ground) Diet Comment: Please eat soft foods for at least the next few days, then advance as able. Addtl Attending Provider Instructions: You were admitted to the hospital with an abscess in the back of your throat. Dr. Sherwood drained this area and you are feeling much better today. Please take your Augmentin starting tonight (11/21/2020), then twice a day until gone. Please see Dr. Sherwood (or another ENT provider) within 1-2 weeks to be sure the area is healing well. Please return to the hospital if the swelling starts to get worse, if you have further fevers, or if you have any trouble swallowing, talking, or breathing. Pending Studies at Discharge: Yes Studies:: Bacterial culture Stand-Alone Forms: [facility], Smoking Cessation Medications and DC Order Prescriptions: New amoxicillin-pot clavulanate [Augmentin] 875-125 mg tablet 1 tab PO BID Qty: 20 RF: 0 Continued atorvastatin 20 mg tablet 20 mg PO DAILY Qty: 90 RF: 1 cholecalciferol (vitamin D3) 125 mcg (5,000 unit) capsule 125 mcg PO DAILY Qty: 30 RF: 11 omeprazole 40 mg capsule,delayed release(DR/EC) 40 mg PO DAILY Qty: 30 RF: 5 albuterol sulfate 90 mcg/actuation HFA aerosol inhaler 1 - 2 puff INH Q4H PRN (Reason: shortness of breath or wheezing) Qty: 8.5 RF: 0 gabapentin 100 mg capsule 100 mg PO DAILY Qty: 90 RF: 2 aspirin 81 mg tablet,delayed release (DR/EC) 81 mg PO DAILY RF: 0 vitamin B complex Tablet 1 tab PO DAILY RF: 0 Discontinued amoxicillin 500 mg tablet 500 mg PO Q8H Qty: 21 RF: 0 Discharge Orders: Discharge Order (Routine); Ordered 11/21/20 Ordered By: Tejinder Treviño Admission Data Admit Date/Time: 11/20/20 20:53 Attending Provider: Tejinder Treviño Admit Provider: Jona Chapman Primary Care Provider: [address]per[address] III Other Providers: Callie Sherwood ; Tejinder Treviño Other Interventions: Discharge Summary Assessment (RN) Last Done: 11/21/20 11:49 Coding Level of Care Code D/C DAY MANAGEMENT >30 MINS Diagnoses Peritonsillar abscess J36 Chronic reflux esophagitis K21.0 Hypercholesterolemia E78.00 Asthma J45.909
== END 2020-11-21 14:00 | disposition home or self-care (01) | DRG 145 ==
LOC: ED 17:30 → SUATTDRO 20:53 → 2N 20:53